=== PATIENT | male | born 1970 | race African-American/Black ===

== ENCOUNTER 2021-09-21 13:29 | Emergency (ER) | payer MEDICAID ==
[~2021-09-21] VITALS: Ht 182.9 cm; Wt 78.0 kg
[2021-09-21] MEDS ORDERED: IBUPROFEN 600MG TABLET PO ONE (15:15)
[2021-09-21] MEDS ORDERED: BACITRACIN ZINC OINT UDPKT TOP ONE (15:15)
[2021-09-21] MEDS ORDERED: TETANUS, DIPHTHERIA, PERTUSSIS VAC/PF 0.5ML (>10YR OLD) IM ONE (15:15)
[2021-09-21] MEDS ORDERED: NAPR-681 PO (17:21)
[2021-09-21] MEDS ORDERED: CYCL5TAB PO (17:21)
[2021-09-21 17:35] VITALS: BP 127/84
== END 2021-09-21 17:36 | disposition home or self-care (01) ==
LOC: ER 13:45
DX: S80.11XA Contusion of right lower leg, initial encounter (principal); M79.641 Pain in right hand; V23.0XXA Motorcycle driver injured in collision with car, pick-up truck or van in nontraffic accident, initial encounter; Y93.89 Activity, other specified; Y92.89 Other specified places as the place of occurrence of the external cause; Y99.8 Other external cause status
CPT/HCPCS: 73110; 73130; 73590; 90471; 90715; 99284